=== PATIENT | male | born 1995 | race Caucasian/White ===

== ENCOUNTER 2024-08-21 09:29 | Emergency (ER) | payer BC, SELFPAY ==
[2024-08-21 09:46] VITALS: BP 155/95; PULSE 84; TEMP 36.7; O2SAT 99; BMI 29.8
--- NOTE | 2024-08-21 09:54 | XR_ITS ---
The [address] [address] Patient Name: ALBARO CERNA MRN: [id number] date: 1995 Sex: M Assigned Patient Location: ER Current Patient Location: ER Accession/Order Number: [id number] Exam Date: 08/21/2024 10:15 Report Date: 08/21/2024 11:44 At the request of: TAL SETHI Procedure: XR ankle LT min 3V EXAM: XR ankle LT min 3V, XR foot LT min 3V HISTORY: swealling sprain COMPARISON: None. FINDINGS/IMPRESSION: 1. Ankle mortise is maintained. 2. Chronic appearing ossicle distal to the medial malleolus measuring 4 mm. 3. Subcutaneous soft tissue edema about the ankle, more prominent laterally. 4. Small ossification adjacent to the lateral malleolus, may represent small chip fracture or avulsion fracture. 5. Small calcaneal plantar enthesophyte. 6. Normal alignment of the forefoot. 7. No significant joint degeneration. 8. Moderate ankle joint effusion. Electronically authenticated by: YULISA BLANDON Date: 08/21/2024 11:44
--- NOTE | 2024-08-21 09:54 | XR_ITS ---
The [address] [address] Patient Name: ALBARO CERNA MRN: [id number] date: 1995 Sex: M Assigned Patient Location: ER Current Patient Location: ER Accession/Order Number: [id number] Exam Date: 08/21/2024 10:15 Report Date: 08/21/2024 11:44 At the request of: TAL SETHI Procedure: XR foot LT min 3V EXAM: XR ankle LT min 3V, XR foot LT min 3V HISTORY: swealling sprain COMPARISON: None. FINDINGS/IMPRESSION: 1. Ankle mortise is maintained. 2. Chronic appearing ossicle distal to the medial malleolus measuring 4 mm. 3. Subcutaneous soft tissue edema about the ankle, more prominent laterally. 4. Small ossification adjacent to the lateral malleolus, may represent small chip fracture or avulsion fracture. 5. Small calcaneal plantar enthesophyte. 6. Normal alignment of the forefoot. 7. No significant joint degeneration. 8. Moderate ankle joint effusion. Electronically authenticated by: YULISA BLANDON Date: 08/21/2024 11:44
[2024-08-21] MEDS: KETOROLAC TROMETHAMINE 60 MG/2 ML VIAL IM (10:05)
--- NOTE | 2024-08-21 15:47 | ED.LOWEXI1 ---
HPI HPI - Extremity Injury (Lower) General Chief Complaint: Extremity Injury, Lower Stated Complaint: LOWER LEFT EXTREMITY PAIN Time Seen by Provider: 08/21/24 09:54 Source: patient Mode of arrival: walk-in Limitations: no limitations History of Present Illness HPI Narrative: The patient twisted his left ankle yesterday when he was in the [employer] and he mentioned that he twisted his left ankle is able to walk on it but not moving it as it caused pain The patient denies any other injuries Related Data Previous Rx's ?Medication ?Instructions ?Recorded ibuprofen 600 mg tablet 600 mg PO TID PRN pain #20 tabs 08/21/24 Allergies Allergy/AdvReac Type Severity Reaction Status Date / Time No Known Drug Allergies Allergy Verified 08/21/24 09:46 Opioid HPI Opioid Management Most Recent Pain and Opioid Data: Last DEC Pain Assessment 08/21/24 10:05 Review of Systems ROS Status of ROS 10 or more systems reviewed and unremarkable except as noted in history and below PFSH PFSH Social History Little interest or pleasure in doing things: not at all Feeling down, depressed, or hopeless: not at all Exam Narrative Exam Narrative: Nurses notes and vital signs reviewed and patient is not hypoxic. Left lower extremity: Patient have significant swelling and edema of the left ankle specially the left lateral malleolus there is no open wound there is some ecchymosis just distal to the left lateral malleolus and the patient have significant tenderness upon palpation of the ankle joint itself and the lateral and medial malleolus The patient does not have any vascular injury detected General: Well-appearing and in no apparent distress. Skin: Warm, dry, no pallor noted. No rash. Head: Normocephalic, atraumatic. Neck: Supple, non-tender. Eye: Pupils are equal, round and EOMI. No scleral icterus. Ears, Nose, Mouth, and Throat: TM are clear, no nasal mucosal hypertrophy. Oral mucosa is moist, no posterior oropharynx erythema, uvula is mid-line Cardiovascular: Regular Rate and Rhythm without murmur, gallop or rub. Respiratory: No accessory muscle use or respiratory distress. Lungs are clear to auscultation, no wheezing, rales or rhonchi Chest Wall: no tenderness Back: No midline thoracic or lumbar vertebral tenderness. No CVA tenderness Musculoskeletal: normal ROM, no calf or popliteal tenderness, no lower extremity edema/swelling GI: Abdomen is soft, non-distended. Normal bowel sounds. No masses appreciated. No tenderness to palpation. No rebound, guarding, or rigidity noted. Neurological: A&O x4. No cranial nerve dysfunction observed. No truncal ataxia. Moves all extremities. Sensation intact. Psychiatric: Cooperative and interactive. Normal mood and affect. Constitutional Vital Signs, click to edit/add: Last Vital Signs Temp 98.0 F 08/21/24 09:46 Pulse 84 08/21/24 09:46 Resp 18 08/21/24 09:46 BP 155/95 H 08/21/24 09:46 Pulse Ox 99 08/21/24 09:46 O2 Del Method Room Air 08/21/24 09:46 Course Vital Signs Vital signs: Vital Signs Temperature 98.0 F 08/21/24 09:46 Pulse Rate 84 08/21/24 09:46 Respiratory Rate 18 08/21/24 09:46 Blood Pressure 155/95 H 08/21/24 09:46 Pulse Oximetry 99 08/21/24 09:46 Oxygen Delivery Method Room Air 08/21/24 09:46 Temperature 98.0 F 08/21/24 09:46 Pulse Rate 84 08/21/24 09:46 Respiratory Rate 18 08/21/24 09:46 Blood Pressure 155/95 H 08/21/24 09:46 Pulse Oximetry 99 08/21/24 09:46 Oxygen Delivery Method Room Air 08/21/24 09:46 MDM - Extremity Injury (Lower) MDM Narrative Medical decision making narrative: X-ray of the patient foot and ankle shows no acute significant pathology except that we cannot rule out an avulsion fracture The patient was [place] with the airport as a splinting mechanism at the moment with the crutches he is not to bear weight until he has follow-up with podiatry as outpatient he also to elevate and use NSAIDs The patient is to follow up with primary care physician in next 2-3 days or to return to the emergency department should any of the signs or symptoms worsen or new symptoms develop. The patient agrees with the following Diagnosis and Treatment plan and the patient will be discharged home. Discharge Plan Discharge Chief Complaint: Extremity Injury, Lower Clinical Impression: Ankle sprain and strain, Avulsion fracture of ankle Patient Disposition: Home, Self-Care Time of Disposition Decision: 12:04 Condition: Good Prescriptions / Home Meds: New ibuprofen 600 mg tablet 600 mg PO TID PRN (Reason: pain) Qty: 20 0RF Print Language: Slovenian Instructions: Ankle Fracture (DC), Ankle Sprain (ED) Referrals: Dr Scot Waldron [Other] - As soon as possible Physician,Non-Staff, MD [Primary Care Provider] - 1 week Discharge Date/Time: 08/21/24 12:17
== END 2024-08-21 12:17 | disposition home or self-care (01) ==
PROVIDERS: Emergency Provider Emergency Medicine
DX: S82.62XA Displaced fracture of lateral malleolus of left fibula, initial encounter for closed fracture (principal); S93.402A Sprain of unspecified ligament of left ankle, initial encounter; S96.912A Strain of unspecified muscle and tendon at ankle and foot level, left foot, initial encounter; X50.1XXA Overexertion from prolonged static or awkward postures, initial encounter
CPT/HCPCS: 73610; 73630; 96372; 99284; J1885